=== PATIENT | male | born 1995 | race Caucasian/White ===

== ENCOUNTER 2023-02-17 11:59 | Emergency (ER) | payer SELFPAY ==
[~2023-02-17] VITALS: Ht 185.4 cm; Wt 109.1 kg
[~2023-02-17 11:59] MED LIST: NOCURR
[2023-02-17 12:01] VITALS: BP 130/94; PULSE 101; RESP 16; TEMP 98.4
[2023-02-17] MEDS ORDERED: ALBU18HF12 IH (12:04)
[2023-02-17] MEDS ORDERED: BACITRACIN 0.9 GM PACKET OINTMENT TP ONE (13:30)
[2023-02-17] MEDS ORDERED: CEPH-558 PO (14:03)
== END 2023-02-17 14:04 | disposition home or self-care (01) ==
LOC: EMS 12:03
DX: S90.812A Abrasion, left foot, initial encounter (principal); J45.909 Unspecified asthma, uncomplicated; Z90.49 Acquired absence of other specified parts of digestive tract; X58.XXXA Exposure to other specified factors, initial encounter; Y93.89 Activity, other specified; Y92.89 Other specified places as the place of occurrence of the external cause; Y99.8 Other external cause status
CPT/HCPCS: 99283; Z7502; Z7610